=== PATIENT | male | born 1990 | race Caucasian/White ===

== ENCOUNTER 2016-11-10 11:10 | Emergency (ER) | payer BC ==
--- NOTE | 2016-11-10 11:54 | EDM.PDOC ---
ED HPI GENERAL MEDICAL PROBLEM - General Chief Complaint: Skin Complaint Stated Complaint: PAIN PIMPLE JAWLINE Time Seen by Provider: 11/10/16 11:26 Source of Information: Reports: Patient History Limitations: Reports: No Limitations - History of Present Illness INITIAL COMMENTS - FREE TEXT/NARRATIVE: History of present illness: [] Patient's had a pimple on his chin the past 4 days it is getting worse. Trach pop last night got nothing out of it now he now has swelling of his chin. Review of systems: As per history of present illness and below otherwise all systems reviewed and negative. Past medical history: As per history of present illness and as reviewed below otherwise noncontributory. Surgical history: As per history of present illness and as reviewed below otherwise noncontributory. Social history: No reported history of drug or alcohol abuse. Family history: As per history of present illness and as reviewed below otherwise noncontributory. Physical exam: General: Well developed, well nourished in NAD HEENT: Atraumatic, normocephalic, pupils reactive, negative for conjunctival pallor or scleral icterus, mucous membranes moist, throat clear, neck supple, nontender, trachea midline. Left lower chin to submandibular area with swelling and erythema. There is a 2 mm pimple without a head or drainage. Lungs: Clear to auscultation, breath sounds equal bilaterally, chest nontender. Heart: S1S2, regular, negative for clicks, rubs, or JVD. Abdomen: Soft, nondistended, nontender. Negative for masses or hepatosplenomegaly. Negative for costovertebral tenderness. Pelvis: Stable nontender. Genitourinary: Deferred. Rectal: Deferred. Extremities: Atraumatic, negative for cords or calf pain. Neurovascular unremarkable. Neuro: Awake, alert, oriented. Cranial nerves II through XII unremarkable. Cerebellum unremarkable. Motor and sensory unremarkable throughout. Exam nonfocal. Diagnostics: [] Therapeutics: [] Impression: [] Left chin pimple with surrounding cellulitis Plan: []Keflex 4 times a day for 7 days warm compresses to area followup PMD as needed Definitive disposition and diagnosis as appropriate pending reevaluation and review of above. left jaw Pain Score (Numeric/FACES): 1 - Related Data Allergies Allergy/AdvReac Type Severity Reaction Status Date / Time No Known Allergies Allergy Verified 11/10/16 11:22 Home Meds: Home Meds Acetaminophen/Dp-Hydramine [Pain Medicine P.M.] 11/10/16 [History] Cephalexin [Keflex] 500 mg PO Q6HR #28 cap 11/10/16 [Rx] Past Medical History - Past Health History Medical/Surgical History: Denies Medical/Surgical History Social & Family History - Family History Family Medical History: Noncontributory - Tobacco Use Smoking Status *Q: Current Every Day Smoker Years of Tobacco use: 10 Packs/Tins Daily: 1 - Caffeine Use Caffeine Use: Reports: Coffee Caffeine Use Comment: 1 cup daily - Recreational Drug Use Recreational Drug Use: No ED ROS GENERAL - Review of Systems Review Of Systems: See Below (See history of present illness) ED EXAM, SKIN/RASH Exam: See Below (See history of present illness) Course - Vital Signs Last Recorded V/S: Last Vital Signs Temp 36.3 C 11/10/16 11:25 Pulse 74 11/10/16 11:25 Resp 16 11/10/16 11:25 BP 134/76 11/10/16 11:25 Pulse Ox 98 11/10/16 11:25 Departure - Departure Time of Disposition: 11:54 Disposition: Home, Self-Care 01 Condition: good Clinical Impression: Cellulitis Qualifiers: Site of cellulitis: face Qualified Code(s): L03.211 - Cellulitis of face - Discharge Information Prescriptions: Cephalexin [Keflex] 500 mg PO Q6HR #28 cap Referrals: PCP,None [Primary Care Provider] - Forms: ED Department Discharge Additional Instructions: The following information is given to patients seen in the emergency department who are being discharged to home. This information is to outline your options for follow-up care. We provide all patients seen in our emergency department with a follow-up referral. The need for follow-up, as well as the timing and circumstances, are variable depending upon the specifics of your emergency department visit. If you don't have a primary care physician on staff, we will provide you with a referral. We always advise you to contact your personal physician following an emergency department visit to inform them of the circumstance of the visit and for follow-up with them and/or the need for any referrals to a consulting specialist. The emergency department will also refer you to a specialist when appropriate. This referral assures that you have the opportunity for follow-up care with a specialist. All of these measure are taken in an effort to provide you with optimal care, which includes your follow-up. Under all circumstances we always encourage you to contact your private physician who remains a resource for coordinating your care. When calling for follow-up care, please make the office aware that this follow-up is from your recent emergency room visit. If for any reason you are refused follow-up, please contact the [facility] Emergency Department at and asked to speak to the emergency department charge nurse. Keflex 4 times a day for 7 days warm compresses to face followup with PMD if symptoms change or worsen [facility] [address] [place] [id number]
[2016-11-10 12:51] VITALS: BP 118/57
== END 2016-11-10 12:10 | disposition home or self-care (01) ==
LOC: MW.ED 11:10
DX: L03.211 Cellulitis of face (principal); F17.210 Nicotine dependence, cigarettes, uncomplicated
CPT/HCPCS: 99282; 99283

== ENCOUNTER 2024-09-07 10:33 | Emergency (ER) | payer BC ==
[2024-09-07] MEDS: Diphtheria,Pertussis(Acell),Tetanus Vaccine 0.5 ML Syringe IM ONE (11:30)
[2024-09-07] MEDS: Lidocaine 1% 5 ML VIAL INJECT ONE (11:47)
[2024-09-07 12:46] VITALS: BP 115/73; PULSE 88
== END 2024-09-07 12:45 | disposition home or self-care (01) ==
LOC: MW.ED 10:33
DX: S01.111A Laceration without foreign body of right eyelid and periocular area, initial encounter (principal); Z75.8 Other problems related to medical facilities and other health care; Z23 Encounter for immunization; F17.210 Nicotine dependence, cigarettes, uncomplicated; W18.2XXA Fall in (into) shower or empty bathtub, initial encounter; Y93.89 Activity, other specified
CPT/HCPCS: 12011; 70450; 90471; 99284; J2003